=== PATIENT | male | born 1955 | race Caucasian/White ===

== ENCOUNTER 2020-03-22 15:19 | Outpatient (CLI) | payer OTHER ==
--- NOTE | 2020-03-22 15:37 | RAD ---
EXAM: CHEST TWO VIEWS 03/22/2020 3:34 PM HISTORY: Cough COMPARISON: None. FINDINGS: Lungs: No acute airspace consolidation. Heart: Normal in size and contour. Pulmonary Vessels: Normal. Costophrenic Angles: Clear. Pneumothorax: None. Osseous Structures: Intact. Additional Findings: None. IMPRESSION: No significant acute intrathoracic disease.
== END 2020-03-22 15:20 | disposition home or self-care (01) ==
LOC: BICRAD 15:19
PROVIDERS: ATTEND Physician Assistant Medical
DX: R05 Cough (principal); K21.9 Gastro-esophageal reflux disease without esophagitis
CPT/HCPCS: 71046